=== PATIENT | female | born 1950 | race Caucasian/White ===

== ENCOUNTER 2022-02-02 12:40 | Emergency (ER) | payer OTHER, MEDICAID ==
[~2022-02-02] VITALS: Ht 149.9 cm; Wt 45.4 kg
[2022-02-02 12:45] VITALS: BP_SYST 110
--- NOTE | 2022-02-02 13:00 | NUR ---
PATIENT BROUGHT TO ER FOR GENERALIZED WEAKNESS, PLACE IN BED 1, PATIENT MENTALLY CHALLENGE AWAITING TO BE SEEN BY EDP.
[2022-02-02] MEDS ORDERED: ASPIRIN 81 MG TAB.CHEW PO ONE (13:45)
--- NOTE | 2022-02-02 14:00 | NUR ---
EDP SEEN PATIENT WITH ORDER TOYA OUT.
[2022-02-02] MEDS ORDERED: HYDR-3927 PO (14:09)
[2022-02-02 14:12] LABS: BASOPHILS % (AUTO) 0.4 % (0.0-2.0); EOSINOPHILS # (AUTO) 0.2 K/uL (0.0-0.4); EOSINOPHILS % (AUTO) 2.7 % (0.0-4.0); HEMATOCRIT 33.9 % (36-48); HEMOGLOBIN 11.3 g/dL (12.0-16.0); LYMPHOCYTES % (AUTO) 12.4 % (20.5-51.5); MEAN CORPUSCULAR HEMOGLOBIN 30 pg (27-31); MEAN CORPUSCULAR HGB CONC 34 % (32-36); MEAN CORPUSCULAR VOLUME 91 fL (79.0-98.0); MONOCYTES # (AUTO) 0.8 K/uL (0.0-1.0); MONOCYTES % (AUTO) 9.5 % (1.7-9.3); NEUTROPHILS # (AUTO) 6.3 K/uL (1.8-7.7); PLATELET COUNT (AUTO) 216 K/uL (130-430); RED BLOOD CELL COUNT(AUTO) 3.74 MIL/uL (4.2-6.2); RED CELL DISTRIBUTION WIDTH 14.7 % (9.0-15.0); WHITE BLOOD COUNT (AUTO) 8.4 K/uL (4.8-10.8)
[2022-02-02 14:15] LABS: ANION GAP 5 (5-15); CALCIUM 8.2 mg/dL (8.4-11.0); CHLORIDE 105 mmol/L (98-107); CREATININE 0.91 mg/dL (0.55-1.30); GLUCOSE 140 mg/dL (70-99); UREA NITROGEN, BLOOD 21 mg/dL (8-21)
[2022-02-02 14:22] LABS: ALANINE AMINOTRANSFERASE 10 U/L (12-78); ALBUMIN 2.8 g/dL (3.4-4.8); ASPARTATE AMINOTRANSFERASE 15 U/L (10-37); TOTAL BILIRUBIN 0.6 mg/dL (0.0-1.0)
[2022-02-02 14:25] LABS: GFR AFRICAN AMERICAN 79 mL/min (>90)
[2022-02-02] MEDS: KETOROLAC TROMETHAMINE 30 MG VIAL IM ONE (14:37)
--- NOTE | 2022-02-02 15:00 | NUR ---
MICHELLE, [facility] CALLED FOR UPDATE. PLEASE CALL HER FOR TRANSPORTATION AT [phone]
--- NOTE | 2022-02-02 15:15 | NUR ---
COVID AND SWAB OBTAINED AND SENT TO LAB
[2022-02-02] MEDS ORDERED: ZIT250 PO (16:52)
[2022-02-02] MEDS: AZITHROMYCIN 250 MG TABLET PO ONE (16:56)
[2022-02-02 19:01] VITALS: BP_SYST 110
--- NOTE | 2022-02-02 19:05 | NUR ---
Patient given written and verbal discharge instructions and verbalizes understanding. ER MD discussed with patient the results and treatment provided. Patient in stable condition. ID arm band removed. Rx of ZITHROMAX given. Patient educated on pain management and to follow up with PMD. Pain Scale 0 . Opportunity for questions provided and answered. Medication side effect fact sheet provided.
== END 2022-02-02 19:01 | disposition home or self-care (01) ==
LOC: SED 12:40
DX: J06.9 Acute upper respiratory infection, unspecified (principal); R53.1 Weakness; M25.551 Pain in right hip; Z79.899 Other long term (current) drug therapy; Z20.822 Contact with and (suspected) exposure to COVID-19
CPT/HCPCS: 99285; 71045; 87426; 80053; 83880; 85025; 84484; 36415; 93005; 73502; 96372; 87804 ×2; J1885; Q0144